=== PATIENT | male | born 1980 | race Native Hawaiian/Other Pacific Islander ===

== ENCOUNTER 2018-08-26 22:36 | Emergency (ER) | payer SELFPAY ==
[2018-08-26 22:41] VITALS: TEMP 97.8
[2018-08-26] MEDS ORDERED: Sodium Chloride 0.9% 1,000 ML IV STA (22:52)
[2018-08-26] MEDS ORDERED: Propofol 10 mg/ml Inj (20 ML) IV ONE (22:59)
[2018-08-26] MEDS ORDERED: Morphine 4 MG/ML VIAL ONE (23:09)
[2018-08-27 00:56] VITALS: BP 127/84; PULSE 88; RESP 18; O2SAT 100
--- NOTE | 2018-08-27 01:16 | ED PDOC ---
Upper Extremity Pain/Injury Time Seen by Provider: 08/26/18 22:43 Chief Complaint (Nursing): Upper Extremity Problem/Injury Chief Complaint (Provider): Right shoulder pain History Per: Patient History/Exam Limitations: no limitations Onset/Duration Of Symptoms: Hrs (today) Current Symptoms Are (Timing): Still Present Additional Complaint(s): Simon Hwang is a 37 year old male, with no significant past medical history, who was brought to the emergency department by EMS complaining of right shoulder pain onset today. Patient states he fell on to his right shoulder. Patient is not able to move right shoulder and admits to moderate alcohol use. He denies any other injuries or medical complaints. PMD: None provided. Past Medical History Reviewed: Historical Data, Nursing Documentation, Vital Signs Vital Signs: Last Vital Signs Temp 97.8 F 08/26/18 22:38 Pulse 88 08/27/18 00:55 Resp 18 08/27/18 00:55 BP 127/84 08/27/18 00:55 Pulse Ox 100 08/27/18 00:55 - Medical History PMH: No Chronic Diseases - Surgical History Surgical History: No Surg Hx - Family History Family History: States: Unknown Family Hx - Social History Current smoker - smoking cessation education provided: No Alcohol: Social Drugs: Denies - Allergies Allergies/Adverse Reactions: Allergies Allergy/AdvReac Type Severity Reaction Status Date / Time No Known Allergies Allergy Verified 08/26/18 22:42 Review of Systems ROS Statement: Except As Marked, All Systems Reviewed And Found Negative Musculoskeletal: Positive for: Shoulder Pain (right) Physical Exam - Reviewed Nursing Documentation Reviewed: Yes Vital Signs Reviewed: Yes - Physical Exam Appears: Positive for: No Acute Distress Head Exam: Positive for: ATRAUMATIC, NORMOCEPHALIC Skin: Positive for: Normal Color, Warm, Dry Eye Exam: Positive for: Normal appearance Neck: Positive for: Painless ROM Extremity: Positive for: Deformity (right shoulder). Negative for: Normal ROM (unabel to move right arm) Neurologic/Psych: Positive for: Alert, Oriented, Gait (steady) - ECG O2 Sat by Pulse Oximetry: 100 (RA) Pulse Ox Interpretation: Normal - Critical Care Total Time (In Min): 60 Documented Critical Care: Time excludes all time spent performint seperately billable procedures Medical Decision Making Medical Decision Making: Time: 22:43 Initial Impression: 37 y/o male with acute right shoulder dislocation. Initial Plan: --Diprivan 100 mg IV --Morphine 4 mg IVP --Sodium Chloride 1,000 ml IV 1,000 mls/hr --Zofran Inj 4 mg IV --Shoulder right [RAD] --Shoulder right [RAD] -X-ray shows anterior dislocation. Patient initially requesting reduction w/o medications; Atpatient;s request reduction attempyted and was unsuccessful. Patient subsequently amenable to reduction in setting of sedation. -Patient was subsequently placed on personnel monitor and ET CO2 monitor. Patient consented verbally to deep procedural sedation as well as closed reduction. He was unable to sign at the time due to right arm being dislocated however signed after reduction.. -Patient sedated with repeated dosages of Diprivan in 50mg increments for total of 200mg with moderate to deep sedation. Modified Hippocratic technique applied w/o success. Subsequently patient placed in prone position and dislocation was successfully reduced. ET Co2 remained in 20-26 range throughout procedure 01:00 Upon provider reevaluation patient is feeling better, is medically stable, and requires no further treatment in the ED at this time. Patient will be discharged home. Counseling was provided and all questions were answered regarding diagnosis and need for follow up with orthopedist. There is agreement to discharge plan. Scribe Attestation: Documented by Aurelio Brand, acting as a scribe for Juan C Arora MD. Provider Scribe Attestation: All medical record entries made by the Scribe were at my direction and personally dictated by me. I have reviewed the chart and agree that the record accurately reflects my personal performance of the history, physical exam, medical decision making, and the department course for this patient. I have also personally directed, reviewed, and agree with the discharge instructions and disposition. Procedures - Time-Out Type of Procedure: right shoulder reduction Correct Patient: Yes Correct Procedure: Yes Physician Name: Dr Maite SANCHEZ Name: Almita PA/Tech: Nerissa Huerta - Joint Reduction Joint Reduction Site: shoulder (R) Conscious Sedation: No (moderate to deep sedation) Reduction Attempts: 2 Post Joint Reduction Film: joint reduced Progress: Modified hippocratic technique w/o success. Joint reduced successfully on placement in prone position as demonstrated on post reduction of Xray. Patient placed in sling/swath. Disposition - Clinical Impression Clinical Impression: Dislocation of right shoulder joint - Disposition Referrals: Ashley Vargas MD [Staff Provider] - Disposition: Routine/Home Disposition Time: 01:00 Condition: STABLE Instructions: Shoulder Dislocation, Moderate Sedation in Adults Forms: [employer] (Greek) ED Procedural Sedation - Pre Anesthesia Assessment Chief Complaint: Upper Extremity Problem/Injury Past Medical History: Medications Reviewed, Allergies Reviewed, Record Review Previous Surgies: Reviewed Family History/Social History: Reviewed - Physical Exam/Review of Systems Vital Signs Reviewed: Yes Cardiovascular: Regular Rate and Rhythm, Normal S1, S2. denies: Murmurs Respiratory/Chest: Clear to Auscultation, Good Air Exchange. denies: Respiratory Distress Neurological: GCS=15, CN II-XII Intact, Speech Normal Abdomen: Normal Bowel Sounds. denies: Tenderness, Distention, Peritoneal Signs Mental Status: Alert and Oriented X 3 - Pre-Procedure Airway Assessment History of difficult intubation or surgical airway(i.e trach: No Inability to extend neck:: No Mouth opening less than two finger breadth:: No Diagnosis of sleep apnea:: No Less than three finger breadth to hyoid bone:: No ASA Criteria: 1 - Healthy, normal. 2 - Mild systemic disease (No functional limitations, mildline obesity, DM withot complications, Hypertention). 3 - Severe systemic disease (Some functional limitation, stable angina, morbid obesity, controlled COPD/Asthma/CHF). 4 - Sever systemic disease constant threat to life (Unstable angina, active symptoms of COPD/Asthma, CHF/Hypertension. 5 - Moribund ASA Clarification: ASA I Mallampati (airway): Class I - Intra-Procedure (Medications) Medications Given: Discontinued Medications Sodium Chloride (Sodium Chloride 0.9%) 1,000 mls @ 1,000 mls/hr IV .Q1H STA Stop: 08/26/18 23:51 Last Admin: 08/26/18 23:18 Dose: 1,000 mls/hr eMAR Start Stop Document 10/04/18 23:18 RAQUEL (Rec: 08/26/18 23:20 [email or web address] [id number]) Intravenous Solution Start Date 08/26/18 Start Time 23:18 End Date 08/27/18 End time 00:18 Total Infusion Time 60 Morphine Sulfate (Morphine) 4 mg IVP ONCE ONE Stop: 08/26/18 22:53 Last Admin: 08/26/18 23:13 Dose: 4 mg MAR Pain Assessment Document 08/26/18 23:13 RAQUEL (Rec: 08/26/18 23:14 [email or web address] [id number]) Pain Reassessment Is this a pain reassessment? No Sleep Is patient sleeping during reassessment? No Presence of Pain Presence of Pain Yes Pain Scale Used Protocol: PSCALES Pain Scale Used Numeric Location Left, Right or Bilateral Right Pain Location Body Site Arm Description Description Constant Intensity of Pain at present 8 IVP Administration Document 08/26/18 23:13 RAQUEL (Rec: 08/26/18 23:14 [email or web address] [email or web address]) Charges for Administration # of IVP Administrations 1 Re-Assess: MAR Pain Assessment Document 08/27/18 00:13 RAQUEL (Rec: 08/27/18 00:16 [email or web address] [email or web address]) Pain Reassessment Is this a pain reassessment? Yes Sleep Is patient sleeping during reassessment? No Presence of Pain Presence of Pain Yes Description Intensity of Pain at present 3 Ondansetron HCl (Zofran Inj) 4 mg IV STAT STA Stop: 08/26/18 23:03 Last Admin: 08/26/18 23:13 Dose: 4 mg eMAR Start Stop Document 08/26/18 23:13 RAQUEL (Rec: 08/26/18 23:13 [email or web address] [email or web address]) Intravenous Solution Start Date 08/26/18 Start Time 23:13 Propofol (Diprivan) 100 mg IV ONCE ONE Stop: 08/26/18 23:00 Last Admin: 08/26/18 23:23 Dose: 100 mg eMAR Start Stop Document 08/26/18 23:23 RAQUEL (Rec: 08/26/18 23:23 [email or web address] [email or web address]) Intravenous Solution Start Date 08/26/18 Start Time 23:23 Overton Agitation Sedation Document 08/26/18 23:23 RAQUEL (Rec: 08/26/18 23:23 [email or web address] [email or web address]) Overton Agitation Sedation Scale Overton Agitation Sedation Scale Score -3 Moderate Sedation:Movement or eye opening to voice (no eye contact) - Post-Procedure Post Procedure Note: Diprivan 50mg x 4 dosages totalling 200mg administered with moderate to deep sedation. ET CO2 ranged 20-26 and no desaturation or apnea observed. 00:45 Patient PO tolerant with steady gait and fluent speech. Patient discharged in company of his friends and was given sedation instruction and orthopedic referral.
[2018-08-27] MEDS ORDERED: Propofol 10 mg/ml Inj (20 ML) IV ONE (01:43)
--- NOTE | 2018-08-27 10:50 | RAD ---
Date of service: 08/26/2018 PROCEDURE: Radiographs of the Right Shoulder HISTORY: r/o fracture COMPARISON: No prior. FINDINGS: BONES: Normal. No fracture. JOINTS: Anterior inferior dislocation of the right humeral head relative to the glenoid. No visible fracture. SOFT TISSUES: Normal. OTHER FINDINGS: None. IMPRESSION: Acute dislocation right humeral head relative to the glenoid.
--- NOTE | 2018-08-27 10:51 | RAD ---
Date of service: 08/26/2018 PROCEDURE: Radiographs of the Right Shoulder HISTORY: post-reduction COMPARISON: August 26, 2018 pre reduction radiographs. FINDINGS: BONES: No fracture identified. JOINTS: Normal. Glenohumeral and acromioclavicular joints preserved. No osteoarthritis. SOFT TISSUES: Normal. OTHER FINDINGS: None. IMPRESSION: Return to anatomic alignment right glenohumeral relationship. No visible fracture on the single view study.
== END 2018-08-27 01:00 | disposition home or self-care (01) ==
LOC: H.ER 22:36
DX: S43.004A Unspecified dislocation of right shoulder joint, initial encounter (principal); W19.XXXA Unspecified fall, initial encounter; Y92.89 Other specified places as the place of occurrence of the external cause
CPT/HCPCS: 73030; 96361; 96374; 96375; 99284; J2270; J2405; J2704; J7030